=== PATIENT | female | born 1965 | race African-American/Black ===

== ENCOUNTER 2019-09-05 07:06 | Emergency (ER) | payer MEDICAID ==
[~2019-09-05] VITALS: Ht 167.6 cm; Wt 82.0 kg
[2019-09-05] MEDS ORDERED: SODIUM CHLORIDE 0.9% 1,000 ML IV ONE (07:24)
[2019-09-05] MEDS ORDERED: ONDANSETRON HCL 4MG/2ML INJ IV STA (07:24)
[2019-09-05] MEDS ORDERED: MORPHINE SULFATE 4 MG/ML CPJ (NOT FOR IM USE) IV STA (07:24)
[2019-09-05 08:17] LABS: CHLORIDE 103 mEq/L (98-107)
[2019-09-05 08:18] LABS: BASOPHILS % 0.5 % (0.0-2.0); EOSINOPHILS % 0.2 % (0.0-5.0); HEMATOCRIT. 46.7 % (36.0-48.0); HEMOGLOBIN. 15.8 g/dL (12.0-16.0); LYMPHOCYTES % 27.3 % (20.0-50.0); MEAN CORPUSCULAR HEMOGLOBIN 31.2 pg (28.0-32.0); MEAN CORPUSCULAR VOLUME 92.2 fL (81.0-99.0); MEAN PLATELET VOLUME 8.5 fl (7.4-10.4); MONOCYTES % 5.6 % (2.0-8.0); NEUTROPHILS % 66.4 % (40.0-76.0); PLATELET 432 x1000/uL (130-400); RED BLOOD CELL COUNT 5.06 mill/uL (4.2-5.4); RED CELL DISTRIBUTION WIDTH 13.8 % (11.6-14.6)
[2019-09-05 08:22] LABS: ETHANOL BLOOD < 10 mg/dL
[2019-09-05] MEDS ORDERED: LOPERAMIDE 1 MG/7.5 ML UDC PO ONE (10:45)
[2019-09-05] MEDS ORDERED: ACETAMINOPHEN WITH CODEINE 300/30MG TABLET PO ONE (10:45)
[2019-09-05] MEDS ORDERED: LOPERAMIDE HCL 2MG CAPSULE PO NR (11:15)
[2019-09-05 11:25] VITALS: BP 121/61
== END 2019-09-05 11:26 | disposition home or self-care (01) ==
LOC: ER 07:06
DX: R10.33 Periumbilical pain (principal); K62.5 Hemorrhage of anus and rectum; K92.0 Hematemesis; R03.0 Elevated blood-pressure reading, without diagnosis of hypertension
CPT/HCPCS: 36415; 74176; 80053; 80320; 83690; 85025; 96361; 96374; 96375; 99284; J2270; J2405; J7030; G0480

== ENCOUNTER 2020-03-26 18:16 | Emergency (ER) | payer MEDICAID ==
[~2020-03-26] VITALS: Ht 154.9 cm; Wt 62.0 kg
[2020-03-26] MEDS ORDERED: FAMOTIDINE 20MG/2ML VIAL IV STA (19:14)
[2020-03-26] MEDS ORDERED: ONDANSETRON HCL 4MG/2ML INJ IV STA (19:14)
[2020-03-26] MEDS ORDERED: SODIUM CHLORIDE 0.9% 1,000 ML IV ONE (19:14)
[2020-03-26 19:59] LABS: BASOPHILS % 0.4 % (0.0-2.0); EOSINOPHILS % 1.6 % (0.0-5.0); HEMATOCRIT. 44.3 % (36.0-48.0); HEMOGLOBIN. 15.2 g/dL (12.0-16.0); LYMPHOCYTES % 53.7 % (20.0-50.0); MEAN CORPUSCULAR HEMOGLOBIN 31.9 pg (28.0-32.0); MEAN CORPUSCULAR VOLUME 93.2 fL (81.0-99.0); MEAN PLATELET VOLUME 7.9 fl (7.4-10.4); MONOCYTES % 10.3 % (2.0-8.0); PLATELET 380 x1000/uL (130-400); RED BLOOD CELL COUNT 4.75 mill/uL (4.2-5.4); RED CELL DISTRIBUTION WIDTH 13.6 % (11.6-14.6)
[2020-03-26 20:06] LABS: CHLORIDE 99 mEq/L (98-107)
[2020-03-26] MEDS ORDERED: MAGNESIUM/ALUMINUM HYDROXIDE/SIMETHICONE 30ML UDC PO ONE (20:15)
[2020-03-26 20:27] LABS: CLARITY URINE CLEAR (CLEAR); COLOR URINE YELLOW (YELLOW); KETONES URINE 1+ (NEGATIVE); LEUKOCYTE ESTERASE URINE 1+ (NEGATIVE); NITRITE URINE NEGATIVE (NEGATIVE); OCCULT BLOOD URINE 1+ (NEGATIVE); PROTEIN URINE NEGATIVE (NEGATIVE); SPECIFIC GRAVITY URINE 1.012 (1.005-1.030); UROBILINOGEN URINE 0.2 E.U./dL (0.2-1.0)
[2020-03-26] MEDS ORDERED: SUCRALFATE 1 G/10 ML UDC PO ONE (22:15)
[2020-03-26 22:35] VITALS: BP 134/71
== END 2020-03-26 22:36 | disposition home or self-care (01) ==
LOC: ER 18:16
DX: R10.13 Epigastric pain (principal); K76.89 Other specified diseases of liver; R03.0 Elevated blood-pressure reading, without diagnosis of hypertension; K21.9 Gastro-esophageal reflux disease without esophagitis; Z85.9 Personal history of malignant neoplasm, unspecified; Z90.710 Acquired absence of both cervix and uterus; Z88.0 Allergy status to penicillin
CPT/HCPCS: 36415; 71045; 76705; 80053; 81003; 83690; 84484; 85025; 85610; 93005; 96361; 96374; 96375; 99285; J2405; J3490; J7030